=== PATIENT | male | born 1955 | race Caucasian/White ===

== ENCOUNTER 2018-03-14 21:05 | Emergency (ER) | payer OTHER ==
[2018-03-14 21:26] LABS: BILIRUBIN,URINE NEGATIVE (NEGATIVE); GLUCOSE, URINE (UA) NEGATIVE (NEGATIVE); KETONES,URINE (UA) 15 mg/dL (NEGATIVE); LEUKOCYTE ESTERASE, URINE NEGATIVE (NEGATIVE); NITRITE,URINE NEGATIVE (NEGATIVE); OCCULT BLOOD,URINE NEGATIVE (NEGATIVE); PH,URINE 6.5 PH (5.0-7.5); PROTEIN,URINE NEGATIVE (NEGATIVE); UROBILINOGEN,URINE 0.2 (NORMAL) E.U./dL (NORMAL)
[2018-03-14 21:27] LABS: CLARITY,URINE CLEAR (CLEAR)
--- NOTE | 2018-03-14 21:32 | ED Physician Documentation ---
History of Present Illness - Stated complaint Stated Complaint: MALE - Chief complaint Chief Complaint: General - History obtained from History obtained from: Patient - History of Present Illness Timing: Other (62-year-old gentleman who on Wednesday had a half knee replacement and has had increasing trouble with urinary retention ever since. He was under a general anesthetic, not a spinal block. He has never had prostate issues. He is not taking any narcotic pain medication at this juncture, he did the first day, now is just on acetaminophen.) Review of Systems Constitutional: denies: Fever, Chills GI: denies: Abdominal Pain, Nausea, Vomiting : reports: Dysuria, Frequency, Hesitancy. denies: Incontinent PD PAST MEDICAL HISTORY - Allergies Allergies/Adverse Reactions: Allergies Allergy/AdvReac Type Severity Reaction Status Date / Time No Known Drug Allergies Allergy Verified 03/14/18 21:18 PD ED PE NORMAL - Vitals Vital signs reviewed: Yes - General General: Alert and oriented X 3, No acute distress - HEENT HEENT: PERRL, EOMI - Abdomen Abdomen: Normal bowel sounds, Other (Suprapubic fullness without tenderness) - Neuro Neuro: Alert and oriented X 3, Normal speech Results - Vitals Vitals: Vital Signs - 24 hr 03/14/18 21:16 Temperature 36.6 C Heart Rate 99 Respiratory 17 Rate Blood Pressure 160/112 H O2 Saturation 96 Oxygen O2 Source Room air - Labs Labs: Laboratory Tests 03/14/18 21:15 Urine Color YELLOW Urine Clarity CLEAR Urine pH 6.5 Ur Specific [place] <=1.005 Urine Protein NEGATIVE Urine Glucose (UA) NEGATIVE Urine Ketones 15 H Urine Occult Blood NEGATIVE Urine Nitrite NEGATIVE Urine Bilirubin NEGATIVE Urine Urobilinogen 0.2 (NORMAL) Ur Leukocyte Esterase NEGATIVE Ur Microscopic Review NOT INDICATED Urine Culture Comments NOT INDICATED PD MEDICAL DECISION MAKING - ED course ED course: After the placement of a Felix catheter he had well over a liter out with immediate relief of his symptoms and was treated for a leg bag and counseled on its use. Departure - Departure Disposition: 01 Home, Self Care Clinical Impression: Acute urinary retention Condition: Good Record reviewed to determine appropriate education?: Yes Instructions: ED Catheter Care Felix Comments: Return if worsening or if new symptoms develop. Follow-up with your doctor in 3 days for catheter removal and a voiding trial. Your blood pressure was elevated today on check into the emergency department. This does not mean that you have hypertension, it is a common phenomenon to come to the emergency department and have elevated blood pressure. I recommend that you see your primary care physician within the week to have it rechecked when you are feeling better.
[2018-03-14 22:27] VITALS: BP 167/102
== END 2018-03-14 22:26 | disposition home or self-care (01) ==
LOC: ED 21:05
DX: R33.9 Retention of urine, unspecified (principal)
CPT/HCPCS: 51702; 81001; 81003; 87086; 99283

== ENCOUNTER 2018-03-17 10:35 | Emergency (ER) | payer OTHER ==
--- NOTE | 2018-03-17 11:54 | ED Physician Documentation ---
History of Present Illness - Stated complaint Stated Complaint: CATH REMOVAL - Chief complaint Chief Complaint: General - History obtained from History obtained from: Patient - History of Present Illness Timing: Other (He had postoperative urinary retention and a Felix placed a few days ago. He is here to have the Felix removed. He has had no significant complications.) Review of Systems Constitutional: denies: Fever, Chills Nose: reports: Reviewed and negative Cardiac: reports: Reviewed and negative PD PAST MEDICAL HISTORY - Past Medical History Past Medical History: No - Past Surgical History Past Surgical History: Yes Ortho: Knee replacement - Present Medications Home Medications: Ambulatory Orders Medication Instructions Recorded Confirmed Aspirin [Adult Aspirin] 81 mg DAILY 03/17/18 03/17/18 - Allergies Allergies/Adverse Reactions: Allergies Allergy/AdvReac Type Severity Reaction Status Date / Time No Known Drug Allergies Allergy Verified 03/14/18 21:18 - Social History Does the pt smoke?: No Smoking Status: Never smoker Does the pt drink ETOH?: Yes Does the pt have substance abuse?: No - Immunizations Immunizations are current?: Yes PD ED PE NORMAL - Vitals Vital signs reviewed: Yes - General General: Alert and oriented X 3, No acute distress - Male Male : Other (Felix in place with clear urine in the bag, it was removed during examination.) - Neuro Neuro: Alert and oriented X 3, Normal speech - Psych Psych: Normal mood, Normal affect Results - Vitals Vitals: Vital Signs - 24 hr 03/17/18 10:43 Temperature 36.4 C L Heart Rate 76 Respiratory 18 Rate Blood Pressure 161/107 H O2 Saturation 98 Oxygen O2 Source Room air PD MEDICAL DECISION MAKING - ED course ED course: He did not want to stay for a voiding trial, he does live close. - Sepsis Event Vital Signs: Vital Signs - 24 hr 03/17/18 10:43 Temperature 36.4 C L Heart Rate 76 Respiratory 18 Rate Blood Pressure 161/107 H O2 Saturation 98 Oxygen O2 Source Room air Departure - Departure Disposition: 01 Home, Self Care Clinical Impression: Acute urinary retention Condition: Good Record reviewed to determine appropriate education?: Yes Comments: Return if unable to urinate. Your blood pressure was elevated today on check into the emergency department. This does not mean that you have hypertension, it is a common phenomenon to come to the emergency department and have elevated blood pressure. I recommend that you see your primary care physician within the week to have it rechecked when you are feeling better.
[2018-03-17 12:02] VITALS: BP 160/100
== END 2018-03-17 12:04 | disposition home or self-care (01) ==
LOC: ED 10:35
DX: R33.9 Retention of urine, unspecified (principal); R03.0 Elevated blood-pressure reading, without diagnosis of hypertension; Z79.82 Long term (current) use of aspirin; Z96.659 Presence of unspecified artificial knee joint
CPT/HCPCS: 99282; 99283

== ENCOUNTER 2018-03-20 01:23 | Emergency (ER) | payer OTHER ==
[2018-03-20] MEDS ORDERED: LIDOCAINE 2% URO-JET 5 ML SYRINGE UR STA (01:27)
[2018-03-20 01:57] LABS: BILIRUBIN,URINE NEGATIVE (NEGATIVE); GLUCOSE, URINE (UA) NEGATIVE (NEGATIVE); KETONES,URINE (UA) TRACE mg/dL (NEGATIVE); LEUKOCYTE ESTERASE, URINE TRACE (NEGATIVE); NITRITE,URINE POSITIVE (NEGATIVE); OCCULT BLOOD,URINE TRACE-LYSE (NEGATIVE); PROTEIN,URINE NEGATIVE (NEGATIVE); UROBILINOGEN,URINE 0.2 (NORMAL) E.U./dL (NORMAL)
[2018-03-20 02:04] LABS: BACTERIA,URINE Many /HPF (None Seen); CLARITY,URINE CLEAR (CLEAR); RBC,URINE 0-5 /HPF (0-5); SQUAMOUS EPITHELIAL CELL,UR NONE SEEN (<= Few)
[2018-03-20] MEDS ORDERED: levoFLOXacin 250 MG TABLET PO STA (02:21)
--- NOTE | 2018-03-20 02:23 | ED Physician Documentation ---
PD HPI MALE - Stated complaint Stated Complaint: DIFF URINATING - Chief complaint Chief Complaint: Abd Pain - History obtained from History obtained from: Patient - History of Present Illness Timing - onset: Yesterday Timing - details: Gradual onset, Still present Associated symptoms: Unable to urinate Similar symptoms before: Work up / diagnostics, Treatment Recently seen: Emergency Dept - Additional information Additional information: Patient is a 62 year old male who is presenting to the emergency department for urinary retention. Patient recently had orthopedic surgery and since that time he has had urinary retention. Patient was seen about 6 days prior and a comer was placed. It was removed 3 days later but patient states that he is unable to urinate again. Review of Systems Ten Systems: 10 systems reviewed and negative Constitutional: denies: Fever, Chills GI: reports: Abdominal Pain. denies: Nausea, Vomiting : reports: Unable to Void PD PAST MEDICAL HISTORY - Past Medical History Past Medical History: Yes Musculoskeletal: Osteoarthritis - Past Surgical History Past Surgical History: Yes Ortho: Knee replacement - Present Medications Home Medications: Ambulatory Orders Medication Instructions Recorded Confirmed Aspirin [Adult Aspirin] 81 mg DAILY 03/17/18 03/17/18 Levofloxacin [Levaquin] 750 mg PO DAILY #4 tablet 03/20/18 - Allergies Allergies/Adverse Reactions: Allergies Allergy/AdvReac Type Severity Reaction Status Date / Time No Known Drug Allergies Allergy Verified 03/14/18 21:18 - Social History Does the pt smoke?: No Smoking Status: Never smoker Does the pt drink ETOH?: Yes Does the pt have substance abuse?: No - Immunizations Immunizations are current?: Yes - POLST Patient has POLST: No PD ED PE NORMAL - Vitals Vital signs reviewed: Yes - General General: Alert and oriented X 3 - HEENT HEENT: Atraumatic - Cardiac Cardiac: RRR - Respiratory Respiratory: No respiratory distress - Derm Derm: Normal color, Warm and dry - Extremities Extremities: No deformity - Neuro Neuro: Alert and oriented X 3 PD ED PE EXPANDED - General General: Alert, In Pain - Abdomen Abdomen: Distended, Tender to palpation, Periumbilical, Suprapubic Results - Vitals Vitals: Vital Signs - 24 hr 03/20/18 03/20/18 01:25 02:00 Temperature 37.8 C H Heart Rate 105 H 95 Respiratory 18 16 Rate Blood Pressure 157/100 H 152/97 H O2 Saturation 94 96 Oxygen O2 Source Room air - Labs Labs: Laboratory Tests 03/20/18 01:54 Urine Color YELLOW Urine Clarity CLEAR Urine pH 6.0 Ur Specific [place] 1.020 Urine Protein NEGATIVE Urine Glucose (UA) NEGATIVE Urine Ketones TRACE Urine Occult Blood TRACE-LYSE Urine Nitrite POSITIVE H Urine Bilirubin NEGATIVE Urine Urobilinogen 0.2 (NORMAL) Ur Leukocyte Esterase TRACE H Urine RBC 0-5 Urine WBC 11-25 H Ur Squamous Epith Cells NONE SEEN Urine Bacteria Many H Ur Microscopic Review INDICATED Urine Culture Comments INDICATED PD MEDICAL DECISION MAKING - ED course Complexity details: reviewed old records, reviewed results, re-evaluated patient , considered differential, d/w patient ED course: patient was seen and examined at bedside. comer catheter was placed and approximately 1700ml of urine was collected. patient's urine was sent and patient was found to have a urinary tract infection. Patient was treated with levaquin. Patient was able to tolerate PO without difficulty. Patient required no further work up and was stable for discharge with outpatient follow up. - Sepsis Event Vital Signs: Vital Signs - 24 hr 03/20/18 03/20/18 01:25 02:00 Temperature 37.8 C H Heart Rate 105 H 95 Respiratory 18 16 Rate Blood Pressure 157/100 H 152/97 H O2 Saturation 94 96 Oxygen O2 Source Room air Departure - Departure Disposition: 01 Home, Self Care Clinical Impression: Urinary tract infection, Acute urinary retention Condition: Good Instructions: ED UTI Cystitis Male Follow-Up: Seng Alaniz MD [Primary Care Provider] - Within 3 Days Prescriptions: Levofloxacin [Levaquin] 750 mg PO DAILY #4 tablet Comments: Your symptoms today are being caused by urinary retention. You have also developed a urinary tract infection. You had your first dose of antibiotics tonight and will need to be on them for the next four days. You should follow up with your doctor on wednesday for re-evaluation. You should return to the emergency department for fevers, chills, nausea and vomiting.
[2018-03-20 03:08] VITALS: BP 151/103
== END 2018-03-20 03:08 | disposition home or self-care (01) ==
LOC: ED 01:23
DX: N39.0 Urinary tract infection, site not specified (principal); R33.9 Retention of urine, unspecified; Z79.82 Long term (current) use of aspirin; Z96.659 Presence of unspecified artificial knee joint
CPT/HCPCS: 51702; 51798; 81001; 87077; 87086; 87181; 99283; A9270; 81003